=== PATIENT | female | born 1995 | race Caucasian/White ===

== ENCOUNTER 2018-04-14 14:41 | Emergency (ER) | payer BC ==
[~2018-04-14] VITALS: Ht 162.6 cm; Wt 58.5 kg
[2018-04-14 14:44] VITALS: Ht 162.6 cm; Wt 58.5 kg
[2018-04-14 20:23] VITALS: BP 115/69
== END 2018-04-14 20:23 | disposition home or self-care (01) ==
LOC: ED 14:41
DX: N83.201 Unspecified ovarian cyst, right side (principal)

== ENCOUNTER 2019-08-28 11:05 | Emergency (ER) | payer BC ==
[~2019-08-28] VITALS: Ht 162.6 cm; Wt 57.2 kg
[2019-08-28 11:20] VITALS: Ht 162.6 cm; Wt 57.2 kg
[2019-08-28 12:27] VITALS: BP 112/79
== END 2019-08-28 12:27 | disposition home or self-care (01) ==
LOC: ED 11:05
DX: J32.9 Chronic sinusitis, unspecified (principal)
CPT/HCPCS: Q0092